=== PATIENT | female | born 1990 | race Two or more races ===

== ENCOUNTER 2018-04-27 05:52 | Inpatient (IN) | payer MEDICAID ==
[~2018-04-27] VITALS: Ht 157.5 cm; Wt 84.4 kg
[2018-04-27] MEDS ORDERED: LACTATED RINGER'S 1,000 ML IV SCH (09:33)
[2018-04-27] MEDS ORDERED: LACT. RINGERS/OXYTOCIN 20UNITS 1,000 ML IV SCH (09:33)
[2018-04-27] MEDS ORDERED: NALBUPHINE HCL 10 MG/1ml INJECTION IV PRN (09:45)
[2018-04-27] MEDS ORDERED: WITCH HAZEL-GLYCERIN PAD TOP PRN (09:45)
[2018-04-27] MEDS ORDERED: DERMOPLAST 60ML BOTTLE TOP PRN (09:45)
[2018-04-27] MEDS ORDERED: PHISODERM TOP SOLN 240ML BTL TOP PRN (09:45)
[2018-04-27] MEDS ORDERED: CARBOPROST TROMETHAMINE 250 MCG/1ML VIAL IM PRN (09:45)
[2018-04-27] MEDS ORDERED: LIDOCAINE 2% (LOCAL ANESTH.) PF 5ml SDV ID ONE (09:45)
[2018-04-27] MEDS ORDERED: LIDOCAINE 2%HCL (LOCAL ANESTH.) INJ 10ml MDV IJ ONE (09:45)
[2018-04-27] MEDS ORDERED: LIDOCAINE 2%HCL (LOCAL ANESTH.) INJ 20ML MDV ONE (10:02)
[2018-04-27 10:20] LABS: Basophils # (auto) 0 uL; Basophils % (auto) 0.1 % (0.0-2.0); Eosinophils # (auto) 0 uL; Eosinophils % (auto) 0.2 % (0.0-7.0); Hematocrit 38.5 % (36.0-46.0); Hemoglobin 12.7 g/dL (12.2-16.2); Lymphocytes # (auto) 1.5 uL; Lymphocytes % (auto) 13.7 % (10.0-50.0); Mean Corpuscular Hgb Conc. 32.9 g/dL (32.0-36.0); Mean Corpuscular Volume 85.1 fL (80.0-100.0); Monocytes % (auto) 8.7 % (0.0-12.0); Neutrophils # (auto) 8.6 uL; Neutrophils % (auto) 77.3 % (37.0-80.0); Platelet Count (auto) 205 10^3/uL (140-450); Red Blood Cells 4.53 10^6/uL (4.0-5.20); Red Cell Distribution Width 14.2 % (11.8-14.3); White Blood Cell 11.1 10^3/uL (4.4-10.8)
[2018-04-27 10:26] LABS: Urine Bacteria FEW /hpf (None Seen); Urine Blood Negative /uL (Negative); Urine Specific Gravity 1.012 (1.001-1.035); Urine WBC <1 /hpf (0 - 5)
[2018-04-27 10:35] LABS: INR 0.9 (0.9-1.15); Partial Thromboplastin Time 26.1 sec (23.78-33.04); Prothrombin Time 9.7 sec (9.27-12.13)
[2018-04-27 10:37] LABS: Albumin 2.3 g/dL (3.4-5.0); Calcium 8.4 mg/dL (8.5-10.1); Potassium 3.7 mmol/L (3.5-5.1)
[2018-04-27 10:39] LABS: BUN/Creatinine Ratio 12.8
[2018-04-27 10:42] LABS: Bilirubin, Total 0.6 mg/dL (0.2-1.0); Total Protein 6.8 g/dL (6.4-8.2)
[2018-04-27] MEDS ORDERED: LIDOCAINE HCL 2 %PF INJ 10ML AMP IJ ONE (11:00)
[2018-04-27] MEDS ORDERED: fentaNYL W ROPIVACAINE 150 ML EPI SCH (11:00)
[2018-04-27] MEDS ORDERED: ePHEDrine SULFATE 50 MG/ML AMP IV ONE (11:00)
[2018-04-27] MEDS ORDERED: NALOXONE HCL 0.4 MG/ML VIAL IV ONE (11:00)
[2018-04-27] MEDS ORDERED: fentaNYL CITRATE 100 MCG/2 ML VL ONE (11:13)
[2018-04-27] MEDS ORDERED: IBUPROFEN 600 MG TAB PO PRN (17:00)
[2018-04-27] MEDS ORDERED: PREN-145 OR (17:59)
[2018-04-27 19:05] VITALS: BP 97/54
[2018-04-27 23:00] VITALS: BP 100/45
[2018-04-28 03:00] VITALS: BP 107/62
[2018-04-28 07:00] VITALS: BP 120/73
[2018-04-28] MEDS ORDERED: DOCUSATE CALCIUM 240 MG CAP PO SCH (10:00)
[2018-04-28 11:00] VITALS: BP 116/73
[2018-04-28] MEDS ORDERED: MEASLES, MUMPS & RUBELLA VAC(MMRII) 0.5ML SC ONE (13:30)
[2018-04-28 15:08] VITALS: BP 114/66
[2018-04-29 05:06] LABS: RPR Non Reactive (Non Reactive)
== END 2018-04-28 17:25 | disposition home or self-care (01) | DRG 560 ==
LOC: LDRP 05:52 → OBSVTOIN 05:52 → LDRP 09:32
PROVIDERS: ADMIT Specialist; ATTEND Specialist
PROC: 10E0XZZ Delivery of Products of Conception, External Approach (ICD-10-PCS; principal; 2018-04-27)
PROC: 10907ZC Drainage of Amniotic Fluid, Therapeutic from Products of Conception, Via Natural or Artificial Opening (ICD-10-PCS; 2018-04-27)
PROC: 3E0R3BZ Introduction of Anesthetic Agent into Spinal Canal, Percutaneous Approach (ICD-10-PCS; 2018-04-27)
PROC: 00HU33Z Insertion of Infusion Device into Spinal Canal, Percutaneous Approach (ICD-10-PCS; 2018-04-27)
DX: O80 Encounter for full-term uncomplicated delivery (principal); Z23 Encounter for immunization; Z37.0 Single live birth; Z3A.38 38 weeks gestation of pregnancy
CPT/HCPCS: 36415; 59025; 59409; 76818; 80053; 81001; 81002; 85025; 85610; 85730; 86592; 86850; 86900; 86901; 90471; 94760; 96361; 96365; 96366; A6257; G0378; J2001; J2590; J3010

== ENCOUNTER → 2018-06-06 | Day surgery (SDC) | payer MEDICAID ==
[~2018-06-06] VITALS: Ht 160 cm; Wt 75.3 kg
[~2018-06-06] MED LIST: GLYCOPYRROLATE 0.2 MG/ML 1ML VIAL ONE; HYDROmorphone HCL 2 MG/ML VL IV PRN; LACTATED RINGER'S 1,000 ML IV SCH; LIDOCAINE 1% INJ PF 5ML AMP ONE; METOCLOPRAMIDE HCL 5MG/ml INJ 2ml VIAL ONE; MIDAZOLAM HCL 1MG/1ML-2 ML VIAL ONE; NALOXONE HCL 0.4 MG/ML VIAL IV PRN; NEOSTIGMINE 1 MG/ML INJ (10mg/10ML VIAL) ONE; ONDANSETRON HCL 4 MG/2 ML VIAL IV ONE; ONDANSETRON HCL 4 MG/2 ML VIAL IV PRN; PROPOFOL 10 MG/ML 20 ML IV ONE; ROCURONIUM 10MG/ML 10ML VIAL IV ONE; ceFAZolin 1GM/50ML 50 ML IV ONE; fentaNYL CITRATE 100 MCG/2 ML VL ONE
[2018-06-06 10:34] VITALS: BP 101/54
== END | disposition home or self-care (01) ==
LOC: SUR 06:49
PROVIDERS: ATTEND Obstetrics & Gynecology
DX: Z30.2 Encounter for sterilization (principal); N85.8 Other specified noninflammatory disorders of uterus; E11.9 Type 2 diabetes mellitus without complications
CPT/HCPCS: 58671; J1170; J2765; J3010; 86850; 86900; 86901; J0690; J2250; J2405; J2704